=== PATIENT | female | born 1970 | race Caucasian/White ===

== ENCOUNTER 2017-07-04 11:35 | Emergency (ER) | payer OTHER ==
[~2017-07-04] VITALS: Ht 165.1 cm; Wt 79.3 kg
[~2017-07-04 11:35] MED LIST: BENZ100C84 PO; EPP3/2 IM; LEVO200T6 PO; LORA0.5T12 PO
[2017-07-04 11:38] VITALS: TEMP 36.6; Ht 165.1 cm; Wt 79.3 kg
[2017-07-04] MEDS ORDERED: DICL50TA3 PO (11:53)
[2017-07-04] MEDS ORDERED: HYDR-4079 PO (11:53)
[2017-07-04] MEDS ORDERED: LEVO100T7 PO (11:53)
[2017-07-04] MEDS ORDERED: TIZA4CAP PO (11:53)
[2017-07-04] MEDS ORDERED: ONDANSETRON INJ 2 MG/ML 2 ML VIAL IV STA (11:58)
[2017-07-04] MEDS ORDERED: SODIUM CHLORIDE 0.9% 1000ML 1,000 ML IV STA (11:58)
[2017-07-04 12:22] LABS: BASO % 0.3 %; BASO ABS # 0.03 K/uL (0-0.2); EOS % 1.9 %; EOS ABS # 0.22 K/uL (0-0.5); HEMATOCRIT 42.8 % (37-47); HEMOGLOBIN 14.2 g/dL (12.0-16.0); IG# 0.04 K/uL (0.00-0.02); LYMPH % 37.9 %; LYMPH ABS # 4.48 K/uL (1.2-3.4); MEAN CELL VOLUME 95.5 fL (80-100); MEAN CORPUSCULAR HEMOGLOBIN 31.7 pg (25-34); MEAN CORPUSCULAR HGB CONC 33.2 g/dl (32-36); MONO % 5.7 %; MONO ABS # 0.67 K/uL (0.11-0.59); NEUT % 53.9 %; NEUT ABS # 6.37 K/uL (1.4-6.5); PLATELET COUNT 450 K/uL (130-400); RED CELL DISTRIBUTION WIDTH CV 14.5 % (11.5-14.5); RED CELL DISTRIBUTION WIDTH SD 50.5 fL (36.4-46.3); WHITE BLOOD COUNT 11.81 K/uL (4.8-10.8)
[2017-07-04 12:43] LABS: ALBUMIN 4.4 gm/dl (3.4-5.0); ALT/SGPT 37 U/L (12-78); AST/SGOT 23 U/L (15-37); BLOOD UREA NITROGEN 10 mg/dl (7-18); CALCIUM 9.5 mg/dl (8.5-10.1); CARBON DIOXIDE 28 mmol/L (21-32); CREATININE 0.76 mg/dl (0.60-1.20); GLUCOSE 76 mg/dl (70-99); LIPASE 177 U/L (73-393); POTASSIUM 3.9 mmol/L (3.5-5.1); SODIUM 140 mmol/L (136-145)
[2017-07-04 12:46] LABS: ALKALINE PHOSPHATASE 77 U/L (45-117); TOTAL PROTEIN 8.3 gm/dl (6.4-8.2)
--- NOTE | 2017-07-04 12:52 | DIAGNOSTIC IMAGING REPORT ---
CT OF THE ABDOMEN AND PELVIS WITHOUT CONTRAST CLINICAL HISTORY: LUQ ABDOMINAL PAIN, Nausea/diarrhea. COMPARISON STUDY: No previous studies for comparison. TECHNIQUE: Axial images of the abdomen and pelvis were obtained without IV contrast. Images were reviewed in the axial, sagittal, and coronal planes. A dose lowering technique was utilized adhering to the principles of ALARA. FINDINGS: Evaluation of the abdomen and pelvis is suboptimal on this unenhanced exam. The liver, spleen, adrenal glands, kidneys and pancreas are unremarkable. There is no biliary or pancreatic ductal dilatation. There is no peripancreatic or pericholecystic infiltration. No hydronephrosis is present. No renal, ureteral or bladder calculi are present. No pneumatosis, free air or portal venous gas is present. There is no ascites or lymphadenopathy. Caliber of small and large bowel are normal. The uterus is likely surgically absent. The appendix is not visualized. There is no right lower quadrant inflammation. There are no enlarged lymph nodes. No suspicious skeletal lesions are present. IMPRESSION: No acute process within the abdomen or pelvis on unenhanced exam. Electronically signed by: Jorge Maldonado M.D. 07/04/2017 12:50 PM Dictated Date/Time: 07/04/2017 12:43 PM
[2017-07-04] MEDS ORDERED: ONDA4TAB10 SL (13:27)
[2017-07-04 13:32] VITALS: BP 104/76; PULSE 69; O2SAT 94
--- NOTE | 2017-07-04 16:01 | EMERGENCY ROOM VISIT NOTE ---
History First contact with patient: 11:44 Chief Complaint: ABDOMINAL PAIN Stated Complaint: NAUSEA,DIARRHEA,ABDOMINAL PAIN,DOCTOR REFERRED Nursing Triage Summary: pt reports told here they thinks she is dehydrated d/t n/v/d/ x 2 weeks has abd pain. sent here for rehydration History of Present Illness The patient is a 47 year old female who presents to the Emergency Room with complaints of nausea, diarrhea and intermittent abdominal pain. The patient reports that her symptoms have been ongoing for the past 2 weeks. The patient reports that the nausea and diarrhea is triggered by any type of food intake. She has been able to drink fluids, but reports feeling like she is dehydrated. She has not had any right-sided abdominal pain, or pain radiating into the back. She reports a history of kidney stones, but reports that this feels different. She has not noticed any urinary symptoms. She denies any pain extending into the chest, and denies any shortness of breath, cough or recent upper respiratory infections. She was seen at [facility] this morning, and sent to the emergency department for possible dehydration. She rates her discomfort a 7 out of 10. She denies any prior history of bowel disease. She has not had a colonoscopy, and denies any prior history of diverticulosis, appendicitis or gallbladder issues. She is status post hysterectomy. Review of Systems HEENT: Denies dizziness, visual problems, hearing loss, tinnitus. Denies difficulty swallowing or oral lesions. PULMONARY: Denies cough, shortness of breath, sputum production or hemoptysis. CARDIOVASCULAR: Denies chest pain, palpitations, dyspnea on exertion, orthopnea or peripheral edema. GASTROINTESTINAL: See history of present illness. GENITOURINARY: Denies dysuria, frequency, urgency or nocturia. NEUROLOGIC: Denies history of epilepsy, CVA, TIA or chronic headaches. MUSCULOSKELETAL: Denies history of joint tenderness/swelling. SKIN: Denies rashes or lesions. PSYCHIATRIC: Denies history of depression or mental illness. ENDOCRINE: Denies history of diabetes or thyroid disorders. Past Medical/Surgical History Medical Problems: (1) No significant past medical history Surgical Problems: (1) History of hysterectomy Family History Unremarkable Social History Smoking Status: Current Every Day Smoker Alcohol Use: none Marital Status: Housing Status: lives with family Occupation Status: employed Current/Historical Medications Scheduled Diclofenac (Voltaren), 50 MG PO TID Levothyroxine Sodium (Levothyroxine Sodium), 100 MCG PO DAILY Ondasetron Odt (Zofran Odt), 4 MG SL Q6H Tizanidine (Zanaflex), 4 MG PO TID Scheduled PRN Hydrocodone/Acetaminophen 10MG/325MG (Encinal 10MG/325MG), 1 TAB PO TID PRN for Pain Physical Exam Vital Signs Date Time Temp Pulse Resp B/P (MAP) Pulse Ox O2 Delivery O2 Flow Rate FiO2 07/04/17 13:32 69 16 104/76 94 07/04/17 12:53 69 16 104/76 94 Room Air 07/04/17 11:38 36.6 82 18 112/72 94 Room Air Physical Exam CONSTITUTIONAL: Healthy and well nourished. Alert and oriented X 3 with positive affect. Patient does not appear in any acute distress. She also does not appear acutely ill or toxic. HEENT: Normocephalic, atraumatic. Pupils equal, round and reactive. Ears and nares are clear. No subconjunctival hemorrhage, scleral icterus or conjunctival injection/pallor. OROPHARYNX: Mucous membranes are dry. No posterior pharyngeal erythema or tonsillar hypertrophy. NECK: Full active range of motion without discomfort. RESPIRATORY: Clear to auscultation bilaterally with no wheezing, crackles, rhonchi or stridor. CARDIOVASCULAR: Regular rate and rhythm with no murmurs, rubs or gallops. GASTROINTESTINAL: Bowel sounds present in all quadrants. Patient has mild left sided tenderness to palpation without rigidity, guarding or rebound. Negative De La Cruz sign. Negative McBurney's point tenderness. Negative CVA tenderness. MUSCULOSKELETAL: Full range of motion of all joints without discomfort. INTEGUMENTARY: No rash or other significant dermatologic conditions noted. HEMATOLOGIC: No ecchymosis or petechiae. NEUROLOGIC: No focal neurologic deficits noted. Medical Decision & Procedures ER Provider Diagnostic Interpretation: Noncontrast CT of the abdomen does not show any ureteral calculi or other acute findings within the abdomen given restrictions for a noncontrast study. Radiologist report is as follows: CT OF THE ABDOMEN AND PELVIS WITHOUT CONTRAST CLINICAL HISTORY: LUQ ABDOMINAL PAIN, Nausea/diarrhea. COMPARISON STUDY: No previous studies for comparison. TECHNIQUE: Axial images of the abdomen and pelvis were obtained without IV contrast. Images were reviewed in the axial, sagittal, and coronal planes. A dose lowering technique was utilized adhering to the principles of ALARA. FINDINGS: Evaluation of the abdomen and pelvis is suboptimal on this unenhanced exam. The liver, spleen, adrenal glands, kidneys and pancreas are unremarkable. There is no biliary or pancreatic ductal dilatation. There is no peripancreatic or pericholecystic infiltration. No hydronephrosis is present. No renal, ureteral or bladder calculi are present. No pneumatosis, free air or portal venous gas is present. There is no ascites or lymphadenopathy. Caliber of small and large bowel are normal. The uterus is likely surgically absent. The appendix is not visualized. There is no right lower quadrant inflammation. There are no enlarged lymph nodes. No suspicious skeletal lesions are present. IMPRESSION: No acute process within the abdomen or pelvis on unenhanced exam. Laboratory Results 07/04/17 12:00 Red Blood Count 4.48, Mean Corpuscular Volume 95.5, Mean Corpuscular Hemoglobin 31.7, Mean Corpuscular Hemoglobin Concent 33.2, Mean Platelet Volume 9.0, Neutrophils (%) (Auto) 53.9, Lymphocytes (%) (Auto) 37.9, Monocytes (%) (Auto) 5.7, Eosinophils (%) (Auto) 1.9, Basophils (%) (Auto) 0.3, Neutrophils # (Auto) 6.37, Lymphocytes # (Auto) 4.48, Monocytes # (Auto) 0.67, Eosinophils # (Auto) 0.22, Basophils # (Auto) 0.03 07/04/17 12:00 Test 07/04/17 12:00 07/04/17 12:25 White Blood Count 11.81 K/uL (4.8-10.8) Red Blood Count 4.48 M/uL (4.2-5.4) Hemoglobin 14.2 g/dL (12.0-16.0) Hematocrit 42.8 % (37-47) Mean Corpuscular Volume 95.5 fL (80-100) Mean Corpuscular Hemoglobin 31.7 pg (25-34) Mean Corpuscular Hemoglobin Concent 33.2 g/dl (32-36) Platelet Count 450 K/uL (130-400) Mean Platelet Volume 9.0 fL (7.4-10.4) Neutrophils (%) (Auto) 53.9 % Lymphocytes (%) (Auto) 37.9 % Monocytes (%) (Auto) 5.7 % Eosinophils (%) (Auto) 1.9 % Basophils (%) (Auto) 0.3 % Neutrophils # (Auto) 6.37 K/uL (1.4-6.5) Lymphocytes # (Auto) 4.48 K/uL (1.2-3.4) Monocytes # (Auto) 0.67 K/uL (0.11-0.59) Eosinophils # (Auto) 0.22 K/uL (0-0.5) Basophils # (Auto) 0.03 K/uL (0-0.2) RDW Standard Deviation 50.5 fL (36.4-46.3) RDW Coefficient of Variation 14.5 % (11.5-14.5) Immature Granulocyte % (Auto) 0.3 % Immature Granulocyte # (Auto) 0.04 K/uL (0.00-0.02) Anion Gap 3.0 mmol/L (3-11) Est Creatinine Clear Calc Drug Dose 94.2 ml/min Estimated GFR () 107.5 Estimated GFR (Non- 92.8 BUN/Creatinine Ratio 12.7 (10-20) Calcium Level 9.5 mg/dl (8.5-10.1) Total Bilirubin 0.3 mg/dl (0.2-1) Direct Bilirubin < 0.1 mg/dl (0-0.2) Aspartate Amino Transf (AST/SGOT) 23 U/L (15-37) Alanine Aminotransferase (ALT/SGPT) 37 U/L (12-78) Alkaline Phosphatase 77 U/L (45-117) Total Protein 8.3 gm/dl (6.4-8.2) Albumin 4.4 gm/dl (3.4-5.0) Lipase 177 U/L (73-393) Urine Color YELLOW Urine Appearance CLEAR (CLEAR) Urine pH 5.5 (4.5-7.5) Urine Specific [place] 1.016 (1.000-1.030) Urine Protein NEG (NEG) Urine Glucose (UA) NEG (NEG) Urine Ketones NEG (NEG) Urine Occult Blood NEG (NEG) Urine Nitrite NEG (NEG) Urine Bilirubin NEG (NEG) Urine Urobilinogen NEG (NEG) Urine Leukocyte Esterase NEG (NEG) Urine Test NEG (NEG) The above labs were reviewed and were grossly unremarkable except for a mild leukocytosis. LFTs and lipase are normal. Urinalysis is not suggestive of infection. Medications Administered Medications (Trade) Dose Ordered Sig/Denise Route Start Time Stop Time Status Last Admin Dose Admin Sodium Chloride 1,000 ml @ 999 mls/hr Q1H1M STAT IV 07/04/17 11:58 07/04/17 12:58 DC 07/04/17 12:14 999 MLS/HR Ondansetron HCl (Zofran Inj) 4 mg NOW STAT IV 07/04/17 11:58 07/04/17 12:02 DC 07/04/17 12:14 4 MG ED Course Patient history and physical exam were performed. Nurse's notes were reviewed. Vital signs were reviewed and were normal. IV access was established, and labs were drawn. The patient was hydrated with a liter normal saline, and was administered Zofran 4 mg IVP. Labs were reviewed and were grossly normal. Noncontrast CT of the abdomen and pelvis was also normal. One reevaluation, the patient reported feeling better. This point, I suggested that the patient follow-up with her PCP for further reevaluation. I suspect that she will likely benefit from gastroenterology referral since she has had the symptoms now for several weeks. Her symptoms also seem to be triggered with oral intake, high suggestive of gastroenterology etiology. She was instructed to return to the emergency department for any significantly worsening symptoms. She was provided a prescription for Zofran ODT as needed for nausea. The patient reports that she has hydrocodone at home that she can take as needed. The patient was happy with plan of care, voiced understanding of all discharge instructions, and denied any significant discomfort or nausea at the time of discharge. Medical Decision Patient presents with complaint of intermittent abdominal pain, nausea and diarrhea that is precipitated with oral intake. This is suggestive of gastroenterologic etiology. Laboratory studies are not suggestive of UTI, pancreatitis, cholecystitis or hepatitis. Noncontrast CT of the abdomen does not show any ureteral calculi or obvious diverticulitis. Clinical exam does not show any signs of peritonitis, and his exam is also not suggestive of acute diverticulitis or appendicitis. At this point, I do feel that the patient is stable for outpatient follow-up. She was instructed to return for any worsening symptoms, fever, bloody stool or other concerns. [place] Drug Monitoring Program Search Results: patient reviewed within database, no issues identified Medication Reconcilliation Current Medication List: was personally reviewed by me Blood Pressure Screening Patient's blood pressure: Normal blood pressure Impression Primary Impression: Left sided abdominal pain Additional Impressions: Diarrhea Nausea Departure Information Prescriptions Ondasetron Odt (ZOFRAN ODT) 4 Mg Tab 4 MG SL Q6H for Nausea, #10 TAB Prov: Ramy Culp PA 07/04/17 Referrals Wale Jarvis PA-C (PCP) Patient Instructions [facility] Problem Qualifiers Additional Impressions: Diarrhea Diarrhea type: unspecified type Qualified Codes: R19.7 - Diarrhea, unspecified
== END 2017-07-04 13:33 | disposition home or self-care (01) ==
LOC: MERGE 11:39 → C.EDB 11:39 → C.EDC 13:33
DX: R10.9 Unspecified abdominal pain (principal); R19.7 Diarrhea, unspecified; R11.0 Nausea; Z87.442 Personal history of urinary calculi; F17.210 Nicotine dependence, cigarettes, uncomplicated; Z79.899 Other long term (current) drug therapy

== ENCOUNTER → 2017-07-17 | Outpatient (CLI) | payer OTHER ==
[~2017-07-17] MED LIST changes: +DICL50TA3 PO; +HYDR-4079 PO; +LEVO100T7 PO; +ONDA4TAB10 SL; +TIZA4CAP PO
--- NOTE | 2017-07-17 09:27 | DIAGNOSTIC IMAGING REPORT ---
ABDOMEN LIMITED (US) CLINICAL HISTORY: 47 years-old Female presenting with NAUSEA,DIARRHEA. TECHNIQUE: Real-time grayscale and limited color Doppler ultrasound imaging of the abdomen limited to the right upper quadrant was performed. COMPARISON: CT from 07/04/2017. FINDINGS: Pancreas: Visualized portions of the pancreatic head and body normal. Liver: Normal echogenicity and echotexture. The liver measures 18.0 cm in maximal sagittal dimension. No sonographic evidence of hepatic mass. Main portal vein patent with normal directional flow. Biliary: No intrahepatic biliary ductal dilatation. Common bile duct measures up to 5 mm in diameter. Gallbladder: No evidence of gallstones, gallbladder wall thickening, gallbladder distention, or pericholecystic fluid or inflammatory change. Right kidney: Normal in appearance. No hydronephrosis. Ascites: None. IMPRESSION: Top normal liver size. Otherwise normal sonographic evaluation of the right upper quadrant. No cholelithiasis or biliary ductal dilatation. Electronically signed by: Jesus Spence M.D. 07/17/2017 9:26 AM Dictated Date/Time: 07/17/2017 9:25 AM
== END ==
LOC: C.ULTR 08:40
PROVIDERS: ATTEND Internal Medicine Gastroenterology
DX: R11.0 Nausea (principal); R19.7 Diarrhea, unspecified

== ENCOUNTER → 2017-08-01 | Outpatient (CLI) | payer OTHER | END | disposition home or self-care (01) | LOC: C.LABSPEC 10:14 | PROVIDERS: ATTEND Internal Medicine Gastroenterology | DX: R11.0 Nausea (principal); R19.7 Diarrhea, unspecified ==